=== PATIENT | male | born 1960 | race African-American/Black ===

== ENCOUNTER 2025-04-04 08:28 | Emergency (ER) | payer MEDICAID ==
[~2025-04-04] VITALS: Ht 182.9 cm; Wt 78.0 kg
[~2025-04-04 08:28] MED LIST: ATOR10TA PO; CYCL10TA21 PO; GABA800T97 PO; IBUP-2030 PO; METF-414 PO
[2025-04-04 08:48] VITALS: O2SAT 98
[2025-04-04 09:20] LABS: CLARITY URINE CLEAR (CLEAR); COLOR URINE YELLOW (YELLOW); GLUCOSE URINE NEGATIVE (NEGATIVE); KETONES URINE TRACE (NEGATIVE); LEUKOCYTE ESTERASE URINE NEGATIVE (NEGATIVE); NITRITE URINE NEGATIVE (NEGATIVE); OCCULT BLOOD URINE NEGATIVE (NEGATIVE); PH URINE 7.5 (4.5-8.0); PROTEIN URINE NEGATIVE (NEGATIVE); SPECIFIC GRAVITY URINE 1.016 (1.005-1.030)
[2025-04-04 09:27] LABS: BASOPHILS % 0.7 % (0.0-2.0); EOSINOPHILS % 4.3 % (0.0-5.0); HEMATOCRIT. 33.1 % (42.0-52.0); HEMOGLOBIN. 11.1 g/dL (14.0-18.0); LYMPHOCYTES % 37.8 % (20.0-50.0); MEAN CORPUSCULAR HEMOGLOBIN 30.9 pg (28.0-32.0); MEAN CORPUSCULAR HGB CONC 33.6 g/dL (31.0-37.0); MEAN PLATELET VOLUME 9.8 fl (7.4-10.4); MONOCYTES % 11.3 % (2.0-8.0); NEUTROPHILS % 45.9 % (40.0-76.0); PLATELET 240 x1000/uL (130-400); RED CELL DISTRIBUTION WIDTH 13.3 % (11.6-14.6); WHITE BLOOD COUNT 5.7 x1000/uL (4.5-11.0)
[2025-04-04 09:32] LABS: CHLORIDE 103 mEq/L (98-107); POTASSIUM 4.9 mEq/L (3.5-5.1); SODIUM 140 mEq/L (136-145)
[2025-04-04 09:33] LABS: CALCIUM 11.4 mg/dL (8.7-10.4); CARBON DIOXIDE 31 mEq/L (21-32)
[2025-04-04 09:35] LABS: PROTHROMBIN TIME 10.9 sec (9.6-11.0)
[2025-04-04 09:38] LABS: GLUCOSE 98 mg/dL (70-105); UREA NITROGEN BLOOD 10 mg/dL (9-23)
[2025-04-04 12:41] LABS: ALANINE AMINOTRANSFERASE 11 IU/L (10-49); ALBUMIN 4.3 g/dL (3.2-4.8); ASPARTATE AMINOTRANSFERASE 14 IU/L (<34); BILIRUBIN DIRECT 0.1 mg/dL (<=3.0); BILIRUBIN TOTAL 0.4 mg/dL (0.1-1.0)
[2025-04-04 12:42] LABS: PROTEIN TOTAL 6.5 g/dL (6.0-8.3)
[2025-04-04 12:57] VITALS: BP 122/64; PULSE 79; RESP 16; TEMP 36.7; O2SAT 98
[2025-04-05] MEDS ORDERED: AMIT25TA9 PO (14:35)
[2025-04-05] MEDS ORDERED: METO25TA6 PO (14:35)
== END 2025-04-04 12:59 | disposition left against medical advice (07) ==
LOC: ER 08:28 → EDBEDREQ 12:21 → ER 12:59
DX: K80.50 Calculus of bile duct without cholangitis or cholecystitis without obstruction (principal); E11.9 Type 2 diabetes mellitus without complications; Z79.84 Long term (current) use of oral hypoglycemic drugs; Z79.899 Other long term (current) drug therapy
CPT/HCPCS: 80076; 80048; 81003; 83690; 85025; 85610; 86850; 86900; 86901; 36415; 74177; 93005; 99285; Q9967; Z7610; 99284